=== PATIENT | male | born 1950 | race Caucasian/White ===

== ENCOUNTER → 2022-07-08 | Outpatient (CLI) | payer MEDICARE, OTHER ==
--- NOTE | 2022-07-08 15:40 | FL ---
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 Status post chemoradiation therapy. Difficulty swallowing thicker liquids with coughing. COMPARISON: None Total Fluoroscopy Time: 2 minutes 40 seconds 65 images obtained. FINDINGS: Post surgical change of right neck dissection. Prominent tertiary peristaltic contractions throughout the cervical esophagus. There is carine aspirat ion demonstrated. Prominent anterior endplate spondylosis resulting in focal impressions on to the ce rvical esophagus at multiple levels and overall variable [id number] narrowing. Additional mild to moderate hypertrophy of the cricopharyngeus. Due to the carine aspiration, the exam was prematurely terminated. There are moderate tertiary perista ltic waves within the thoracic esophagus. Unable to exclude a mild relative narrowing distal esophagu s due to the lack of adequate distention. No obvious filling defect or mucosal lesion is seen. IMPRESSION: 1. Multiple reproducible episodes of carine aspiration. Recommend speech pathology referral. 2. Prominent anterior endplate spondylosis cervical spine resulting in focal impressions on to the ba ck wall of the cervical esophagus at multiple levels and secondary mild to moderate narrowings. 3. Exam was prematurely terminated due to the recurrent aspiration. Difficult to exclude mild smooth narrowing/stricture distal esophagus due to lack of air contrast administration. No obvious mucosal l esion is seen allowing for single contrast technique.
== END | disposition home or self-care (01) ==
LOC: RADUSWWP 09:41
PROVIDERS: ATTEND Internal Medicine
DX: M47.812 Spondylosis without myelopathy or radiculopathy, cervical region (principal); R13.10 Dysphagia, unspecified; Z85.818 Personal history of malignant neoplasm of other sites of lip, oral cavity, and pharynx
CPT/HCPCS: 74220

== ENCOUNTER → 2022-07-26 | Outpatient (CLI) | payer MEDICARE, OTHER ==
--- NOTE | 2022-07-26 10:50 | CT ---
EXAMINATION TYPE: CT brain wo con DATE OF EXAM: 07/26/2022 HISTORY: dysphagia, difficulty with speech CT DLP: 1144.7 mGycm. Automated Exposure Control for Dose Reduction was Utilized. TECHNIQUE: CT scan of the head is performed without contrast. COMPARISON: None. FINDINGS: There is no acute intracranial hemorrhage or midline shift identified. There is mild diff use ventricular and sulcal prominence consistent with diffuse age-related cerebral atrophy. There is mild to moderate low-attenuation in the periventricular white matter consistent with chronic small v essel ischemic change. Tiny old lacunar infarct right head of caudate nucleus on axial image 28. The globes are intact and the visualized sinuses are clear. IMPRESSION: No acute intracranial hemorrhage or midline shift. There is mild diffuse age-related ce rebral atrophy and mild to moderate chronic small vessel ischemic change noted.
== END | disposition home or self-care (01) ==
LOC: RADCTMAIN 10:27
PROVIDERS: ATTEND Internal Medicine
DX: I67.82 Cerebral ischemia (principal); G31.9 Degenerative disease of nervous system, unspecified
CPT/HCPCS: 70450

== ENCOUNTER → 2022-08-21 | Outpatient (CLI) | payer MEDICARE, OTHER ==
--- NOTE | 2022-08-21 15:04 | FL ---
EXAMINATION TYPE: FL barium swallow w video DATE OF EXAM: 08/21/2022 COMPARISON: NONE HISTORY: Throat radiation TECHNIQUE: Fluoroscopy. FINDINGS: Fluoroscopic guidance was provided for the procedure performed in conjunction with the [facility] pathology department. Please see complete report forthcoming from the Speech Pathology departmen t. Various consistencies from thin liquid to solids were administered. Fluoroscopy time 55 seconds. Number of images: 0. Aspiration occurred with thin liquids. Penetration occurred with nectar thick and honey thick consist encies. There was significant pooling was observed in the vallecula. There is delayed swallowing at the proximal esophagus. There is incomplete clearing of the hypopharyn x with swallowing. IMPRESSION: 1. Aspiration with thin liquids. 2. Penetration with nectar thick and honey consistencies.
== END | disposition home or self-care (01) ==
LOC: RADFLMAIN 11:16
PROVIDERS: ATTEND Internal Medicine
DX: R13.10 Dysphagia, unspecified (principal)
CPT/HCPCS: 74230

== ENCOUNTER → 2022-09-19 | Outpatient (CLI) | payer MEDICARE, OTHER ==
[2022-09-19 15:29] LABS: Basophils # (A) 0.04 X 10*3/uL (0.00-0.10); Basophils % (A) 0.8 %; Eosinophils # (A) 0.22 X 10*3/uL (0.04-0.35); Eosinophils % (A) 4.3 %; HCT 45.8 % (39.6-50.0); HGB 14.7 g/dL (13.0-17.0); Immature Grans, Automated 0.2 %; Lymphocytes # (A) 1.26 X 10*3/uL (0.90-5.00); Lymphocytes % (A) 24.5 %; MCH 30.4 pg (27.0-32.0); MCHC 32.1 g/dL (32.0-37.0); MCV 94.6 fL (80.0-97.0); Mean Platelet Volume 11.1 fL (9.5-12.2); Monocytes # (A) 0.49 X 10*3/uL (0.20-1.00); Monocytes % (A) 9.5 %; NRBC Per 100 WBC 0 /100 WBCS (0.0-0.0); Neutrophils # (A) 3.13 X 10*3/uL (1.80-7.70); Neutrophils % (A) 60.7 %; Platelet Count 199 X 10*3/uL (140-440); RBC 4.84 X 10*6/uL (4.40-5.60); RDW 12.8 % (11.5-14.5); WBC 5.15 X 10*3/uL (4.50-10.00)
[2022-09-19 16:06] LABS: ALT 15 U/L (10-49); AST 24 U/L (14-35); African American GFR (CKD) 97.9 (60.0-200.0); Albumin 4.3 g/dL (3.8-4.9); Albumin/Globulin Ratio 1.87 (1.60-3.17); Alkaline Phosphatase 72 U/L (41-126); BUN/Creat Ratio 10.56 Ratio (12.00-20.00); Blood Urea Nitrogen 9.5 mg/dL (9.0-27.0); Calcium 9.6 mg/dL (8.7-10.3); Carbon Dioxide 29.4 mmol/L (20.0-27.5); Chloride 101 mmol/L (96-109); Chol/HDL Ratio 2.41 Ratio; Globulin 2.3 g/dL (1.6-3.3); Glucose 103 mg/dL (70-110); LDL Cholesterol,Calculated 68.5 mg/dL (0.0-131.0); Non-African American GFR(CKD) 84.4 (60.0-200.0); Potassium 4.2 mmol/L (3.5-5.5); Sodium 141 mmol/L (135-145); Total Protein 6.6 g/dL (6.2-8.2)
== END | disposition home or self-care (01) ==
LOC: LABWHC1 09:27
PROVIDERS: ATTEND Internal Medicine
DX: I10 Essential (primary) hypertension (principal); R73.01 Impaired fasting glucose; N40.1 Benign prostatic hyperplasia with lower urinary tract symptoms
CPT/HCPCS: 36415; 80053; 80061; 84153; 84439; 84443; 85025

== ENCOUNTER → 2022-10-29 | Outpatient (CLI) | payer MEDICARE, OTHER ==
--- NOTE | 2022-10-29 09:10 | US ---
EXAMINATION TYPE: US duplex aorta DATE OF EXAM: 10/29/2022 COMPARISON: NONE CLINICAL HISTORY: Z13.6 ENCOUNTER FOR SCREENING FOR CARDIOVASCULAR D. Screening TECHNIQUE: Multiple sonographic images of the abdominal aorta are obtained. FINDINGS: EXAM MEASUREMENTS: Abdominal Aorta: Proximal: 2.3 x 2.2cm Mid: 2.6 x 2.2cm Distal: 2.5 x 2.0cm Bifurcation: RT: 1.4 x 1.3cm LT: 1.2 x 1.2cm ENVIRONMENTAL SERVICES DIRECTOR NOTES: No evidence of AAA at this time No evidence for abdominal aortic aneurysm. No significant atherosclerotic plaque. IMPRESSION: No abdominal aortic aneurysm.
== END | disposition home or self-care (01) ==
LOC: RADUSWWP 07:32
PROVIDERS: ATTEND Internal Medicine
DX: Z13.6 Encounter for screening for cardiovascular disorders (principal); Z87.891 Personal history of nicotine dependence
CPT/HCPCS: 93979

== ENCOUNTER → 2022-12-12 | Outpatient (CLI) | payer MEDICARE, OTHER ==
[2022-12-12 13:43] LABS: African American GFR (CKD) >90 (>60 ml/min/1.73 sqM); Blood Urea Nitrogen 14 mg/dL (9-20); Non-African American GFR(CKD) 87 (>60 ml/min/1.73 sqM)
--- NOTE | 2022-12-12 15:26 | CT ---
EXAMINATION TYPE: CT abdomen pelvis w con CT DLP: 1268 mGycm, Automated exposure control for dose reduction was used. DATE OF EXAM: 12/12/2022 3:09 PM COMPARISON: None CLINICAL INDICATION:Male, 72 years old with history of I70.8; bulging vessel seen on colonoscopy TECHNIQUE: Axial CT of the abdomen and pelvis. Sagittal and coronal reformats were created on a [employer] workstation. Contrast used:90 mL of Isovue 300 with IV Contrast, Oral contrast used: with Oral Contrast FINDINGS: LOWER CHEST: Unremarkable ABDOMEN LIVER: Unremarkable GALLBLADDER AND BILE DUCTS: Gallbladder surgically absent. PANCREAS: Unremarkable. SPLEEN: Unremarkable. ADRENAL GLANDS: Unremarkable. KIDNEYS AND URETERS: Mild bilateral hydronephrosis and left renal cyst. PELVIS BLADDER: The bladder is markedly dilated measuring up to 14.8 x 10.2 cm. REPRODUCTIVE: Prostate gland is enlarged measuring up to 4.8 cm. ABDOMEN & PELVIS STOMACH AND BOWEL: No evidence of bowel obstruction. Moderate stool burden is seen throughout the col on. Scattered clonic diverticula present. PERITONEUM/RETROPERITONEUM: No evidence of pneumoperitoneum or free fluid. . VASCULATURE: No evidence of aortic aneurysm. MUSCULOSKELETAL: No acute osseous abnormalities, fixation hardware in the spine extending from L4 S1 with hardware intact. LYMPH NODES: No gross evidence for lymphadenopathy. SOFT TISSUE/ABDOMINAL WALL: Left inguinal canal hernia containing fluid. IMPRESSION: 1. No acute intracranial process. 2. Colonic diverticulosis with moderate stool burden throughout the colon. No CT evidence for "bulgi ng vessels" 3. Prostatomegaly with distended urinary bladder and bilateral mild hydronephrosis correlate for jdoy dder obstruction consider. Correlate with serum PSA. 4. Fluid containing left inguinal hernia.
== END | disposition home or self-care (01) ==
LOC: RADCTMAIN 13:08
PROVIDERS: ATTEND Internal Medicine
DX: K40.90 Unilateral inguinal hernia, without obstruction or gangrene, not specified as recurrent (principal); I70.8 Atherosclerosis of other arteries; N40.0 Benign prostatic hyperplasia without lower urinary tract symptoms; K57.30 Diverticulosis of large intestine without perforation or abscess without bleeding; N32.89 Other specified disorders of bladder
CPT/HCPCS: 82565; 84520; 74177; 36415; Q9967

== ENCOUNTER → 2023-02-06 | Outpatient (CLI) | payer MEDICARE, OTHER ==
--- NOTE | 2023-02-06 12:14 | FL ---
EXAMINATION TYPE: FL barium swallow w video DATE OF EXAM: 02/06/2023 MODIFIED SWALLOW / DEGLUTITION STUDY CLINICAL HISTORY: Dysphagia. History of throat cancer and treatment undergoing neck muscular stimulat ion. TECHNIQUE: Deglutition study is performed utilizing thin liquid barium, honey and nectar thick liqui d barium, barium thick applesauce, and barium coated cracker. 2 minutes 53 second of fluoro time and 0 images obtained. COMPARISON: Prior esophagram report August 21, 2022 FINDINGS: The oral and pharyngeal phases show satisfactory initiation with poor propagation with all modalities tested. Extensive posttreatment change to the neck is partially imaged. There are satisfa ctory mastication seen with solid modalities tested. There is silent aspiration with one episode of thin liquid barium. No aspiration with other modalities. Mild to moderate pharyngeal residue was appr eciated. Some pooling of ingested material just below the tracheal origin is noted. IMPRESSION: Single episode of silent aspiration of thin liquid barium. No aspiration with other moda lities tested. Please refer to speech therapist notes for further details if necessary.
== END | disposition home or self-care (01) ==
LOC: RADFLMAIN 11:20
PROVIDERS: ATTEND Internal Medicine
DX: R13.13 Dysphagia, pharyngeal phase (principal)
CPT/HCPCS: 74230

== ENCOUNTER → 2023-10-09 | Outpatient (CLI) | payer MEDICARE, OTHER ==
[2023-10-09 16:13] LABS: Basophils # (A) 0.02 X 10*3/uL (0.00-0.10); Basophils % (A) 0.4 %; Eosinophils # (A) 0.09 X 10*3/uL (0.04-0.35); Eosinophils % (A) 1.7 %; HCT 46.9 % (39.6-50.0); Lymphocytes # (A) 1.07 X 10*3/uL (0.90-5.00); Lymphocytes % (A) 20.5 %; MCH 30.2 pg (27.0-32.0); MCV 94.6 FL (80.0-97.0); Mean Platelet Volume 10.7 FL (9.5-12.2); Monocytes # (A) 0.37 X 10*3/uL (0.20-1.00); Monocytes % (A) 7.1 %; NRBC Per 100 WBC 0 X 10*3/uL (0.00-0.01); Neutrophils # (A) 3.63 X 10*3/uL (1.80-7.70); Neutrophils % (A) 69.7 %; Platelet Count 227 X 10*3/uL (140-440); RBC 4.96 X 10*6/uL (4.40-5.60); RDW 13.2 % (11.5-14.5); WBC 5.21 X 10*3/uL (4.50-10.00)
[2023-10-09 16:28] LABS: Chol/HDL Ratio 2.42 Ratio; LDL Cholesterol,Calculated 81.6 mg/dL (0.0-131.0); VLDL Calculation 19.16 mg/dL (5.00-40.00)
[2023-10-09 16:29] LABS: ALT 16 U/L (10-49); AST 19 U/L (14-35); Albumin 4.4 g/dL (3.8-4.9); Alkaline Phosphatase 90 U/L (41-126); BUN/Creat Ratio 15.33 Ratio (12.00-20.00); Blood Urea Nitrogen 13.8 mg/dL (9.0-27.0); Calcium 9.9 mg/dL (8.7-10.3); Chloride 103 mmol/L (96-109); Globulin 2.1 g/dL (1.6-3.3); Glucose 104 mg/dL (70-110); Potassium 4.2 mmol/L (3.5-5.5); Sodium 141 mmol/L (135-145); Total Bilirubin 0.7 mg/dL (0.3-1.2); Total Protein 6.5 g/dL (6.2-8.2)
== END | disposition home or self-care (01) ==
LOC: LABWHC1 08:12
PROVIDERS: ATTEND Internal Medicine
DX: Z11.59 Encounter for screening for other viral diseases (principal); Z12.5 Encounter for screening for malignant neoplasm of prostate; I10 Essential (primary) hypertension; N40.1 Benign prostatic hyperplasia with lower urinary tract symptoms; R73.01 Impaired fasting glucose
CPT/HCPCS: 86803; 80061; 80053; 84443; 85025; 83036; 36415; G0103

== ENCOUNTER → 2024-08-24 | Outpatient (CLI) | payer MEDICARE, OTHER ==
[2024-08-24 11:21] LABS: Basophils # (A) 0.04 X 10*3/uL (0.00-0.10); Basophils % (A) 0.8 %; Eosinophils # (A) 0.13 X 10*3/uL (0.04-0.35); Eosinophils % (A) 2.7 %; HCT 45.9 % (39.6-50.0); HGB 15.1 g/dL (13.0-17.0); Lymphocytes # (A) 1.14 X 10*3/uL (0.90-5.00); Lymphocytes % (A) 23.4 %; MCHC 32.9 g/dL (32.0-37.0); MCV 94.3 FL (80.0-97.0); Mean Platelet Volume 10.9 FL (9.5-12.2); Monocytes % (A) 8.2 %; NRBC Per 100 WBC 0 X 10*3/uL (0.00-0.01); Neutrophils # (A) 3.15 X 10*3/uL (1.80-7.70); Neutrophils % (A) 64.7 %; Platelet Count 227 X 10*3/uL (140-440); RBC 4.87 X 10*6/uL (4.40-5.60); RDW 13.1 % (11.5-14.5); WBC 4.87 X 10*3/uL (4.50-10.00)
[2024-08-24 15:41] LABS: ALT 13 U/L (10-49); AST 20 U/L (14-35); Albumin 4.3 g/dL (3.8-4.9); Albumin/Globulin Ratio 2.15 Ratio (1.60-3.17); Alkaline Phosphatase 86 U/L (41-126); BUN/Creat Ratio 13.44 Ratio (12.00-20.00); Blood Urea Nitrogen 12.1 mg/dL (9.0-27.0); Calcium 9.5 mg/dL (8.7-10.3); Carbon Dioxide 30.5 mmol/L (21.6-31.8); Chloride 102 mmol/L (96-109); Chol/HDL Ratio 2.23 Ratio; Glucose 103 mg/dL (70-110); LDL Cholesterol,Calculated 72.1 mg/dL (0.0-131.0); Potassium 4.4 mmol/L (3.5-5.5); Sodium 142 mmol/L (135-145); Total Bilirubin 0.8 mg/dL (0.3-1.2); Total Protein 6.3 g/dL (6.2-8.2)
== END | disposition home or self-care (01) ==
LOC: LABWHC1 08:46
PROVIDERS: ATTEND Internal Medicine
DX: Z00.00 Encounter for general adult medical examination without abnormal findings (principal); I10 Essential (primary) hypertension; R73.01 Impaired fasting glucose; Z12.9 Encounter for screening for malignant neoplasm, site unspecified
CPT/HCPCS: 36415; 80053; 80061; 83036; 84443; 85025

== ENCOUNTER → 2024-10-29 | Outpatient (CLI) | payer MEDICARE, OTHER ==
--- NOTE | 2024-10-29 11:05 | US ---
EXAMINATION TYPE: US kidneys/renal and bladder DATE OF EXAM: 10/29/2024 COMPARISON: CT 2022 CLINICAL INDICATION: Male, 74 years old with history of [id number] HYDRONEPHROSIS; TECHNIQUE: Grayscale imaging of the bilateral kidneys and urinary bladder: FINDINGS: EXAM MEASUREMENTS: Right Kidney: 11.8 x 4.5 x 5.7 cm Left Kidney: 10.6 x 5.6 x 4.9 cm Right Kidney: 2.2cm cyst vs. hydro mid pole Left Kidney: mild hydro, 3.4 x 2.7 x 2.3cm cyst inferior pole Bladder: not distended Bilateral Jets seen: right jet seen, left jet not seen Prostate: enlarged, 4.4 x 3.8 x 4.6cm IMPRESSION: 1. Mild left renal pelvis dilation similar to prior CT 12/12/2022. 2. Right renal hilum dilation versus peripelvic cyst. 3. No solid renal mass identified. 4. Prostatomegaly, correlate with serum PSA. 5. No renal calculi visualized. [facility], , 10/29/2024 11:03 AM
--- NOTE | 2024-10-31 11:59 | MR ---
EXAMINATION TYPE: MR Prostate wo/w con DATE OF EXAM: 10/29/2024 8:34 AM COMPARISON: 12/12/2022. CLINICAL INDICATION: Male, 74 years old with history of N13.30 UNSPECIFIED HYDRONEPHROSIS R97.20 ELEV ATED Elevated PSA. TECHNIQUE: Multi-planar, multi-sequence imaging of the pelvis is performed prior to and following the uncomplicated administration of bolus intravenous gadolinium. IV Contrast: 8 mL Gadobutrol Interpretive Criteria: PI-RADS v2.1 SERUM PSA: 08-24-24 = 4.44 10-09-23 = 2.57 SURGICAL PATHOLOGY: No data available. FINDINGS: Prostatic dimensions: 5.4 x 5.4 x 4.6 cm. Ellipsoid Volume:70.23 (PSA density=0.06 ng/mL/mL) CENTRAL GLAND (Central and Transition Zones/CZ+TZ): Multiple bilateral, heterogenous appearing hypertrophic stromal nodules, without suspicious lesion. M edian lobe hypertrophy with protrusion into the base of the bladder. (PI-RADS 2) PERIPHERAL ZONE (PZ): Gas in the rectum limits evaluation on diffusion-weighted up CT imaging on the right. Bilateral linea r, indistinct wedgelike areas of low ADC, and low T2 signal, No evidence of masslike abnormality, or localized perfusional hypervascularity, to further suggest a focus of clinically significant prostate cancer. (PI-RADS 2) SEMINAL VESICLES (SV): Symmetric and unremarkable. PERIPROSTATIC TISSUES: Unremarkable. LYMPH NODES: No enlarged pelvic lymph node. REMAINING PELVIS: Bladder wall is within normal limits given distention. No abnormal free or organized intrapelvic fluid collection. No pathologic bowel dilation or mural thickening. Colonic diverticula are present. Right inguinal hernia containing right testis. OSSEOUS STRUCTURES: No suspicious osseous abnormality. IMPRESSION: 1. No specific features for high-risk prostate cancer. Maximum PI-RADS score: 2. 2. Moderate BPH, estimated gland volume 70.23 mL. 3. No suspicious osseous lesion. No lymphadenopathy. No evidence of prostate adenocarcinoma involving the periprostatic tissues. 4. Right inguinal hernia containing the right testis. [facility], , 10/31/2024 11:57 AM
== END | disposition home or self-care (01) ==
LOC: RADMRIMAIN 07:35
PROVIDERS: ATTEND Urology
DX: N13.30 Unspecified hydronephrosis (principal); R97.20 Elevated prostate specific antigen [PSA]; N40.0 Benign prostatic hyperplasia without lower urinary tract symptoms; N28.1 Cyst of kidney, acquired; K40.90 Unilateral inguinal hernia, without obstruction or gangrene, not specified as recurrent
CPT/HCPCS: 76770; 72197; A9585

== ENCOUNTER → 2025-03-01 | Outpatient (CLI) | payer MEDICARE, OTHER ==
[2025-03-01 15:26] LABS: Basophils # (A) 0.04 X 10*3/uL (0.00-0.10); Basophils % (A) 0.6 %; Eosinophils # (A) 0.11 X 10*3/uL (0.04-0.35); Eosinophils % (A) 1.7 %; HCT 48.6 % (39.6-50.0); HGB 15.6 g/dL (13.0-17.0); Lymphocytes # (A) 1.07 X 10*3/uL (0.90-5.00); Lymphocytes % (A) 16.4 %; MCH 30.2 pg (27.0-32.0); MCHC 32.1 g/dL (32.0-37.0); MCV 94.2 FL (80.0-97.0); Mean Platelet Volume 10.5 FL (9.5-12.2); Monocytes # (A) 0.45 X 10*3/uL (0.20-1.00); Monocytes % (A) 6.9 %; NRBC Per 100 WBC 0 X 10*3/uL (0.00-0.01); Neutrophils # (A) 4.83 X 10*3/uL (1.80-7.70); Neutrophils % (A) 74.1 %; Platelet Count 240 X 10*3/uL (140-440); RBC 5.16 X 10*6/uL (4.40-5.60); RDW 12.9 % (11.5-14.5); WBC 6.52 X 10*3/uL (4.50-10.00)
[2025-03-01 15:39] LABS: ALT 12 U/L (10-49); AST 19 U/L (14-35); Albumin 4.3 g/dL (3.8-4.9); Albumin/Globulin Ratio 2.05 Ratio (1.60-3.17); Alkaline Phosphatase 92 U/L (41-126); BUN/Creat Ratio 13.33 Ratio (12.00-20.00); Calcium 9.6 mg/dL (8.7-10.3); Carbon Dioxide 30.7 mmol/L (21.6-31.8); Chloride 102 mmol/L (96-109); Chol/HDL Ratio 2.49 Ratio; Globulin 2.1 g/dL (1.6-3.3); Glucose 102 mg/dL (70-110); LDL Cholesterol,Calculated 80.8 mg/dL (0.0-131.0); Magnesium 2.1 mg/dL (1.5-2.4); Potassium 4.1 mmol/L (3.5-5.5); Prostate Specific Antigen 4.89 ng/mL (0.000-6.500); Sodium 143 mmol/L (135-145); Total Protein 6.4 g/dL (6.2-8.2)
== END | disposition home or self-care (01) ==
LOC: LABWHC1 09:07
PROVIDERS: ATTEND Internal Medicine
DX: I10 Essential (primary) hypertension (principal); R97.20 Elevated prostate specific antigen [PSA]; R73.01 Impaired fasting glucose
CPT/HCPCS: 36415; 80053; 80061; 83036; 83735; 84153; 84439; 84443; 85025